=== PATIENT | female | born 1965 | race Caucasian/White ===

== ENCOUNTER 2020-09-18 02:11 | Emergency (ER) | payer OTHER ==
[~2020-09-18] VITALS: Ht 160 cm; Wt 105.0 kg
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
--- NOTE | 2020-09-18 02:52 | NUR ---
REPORT TO MARYANA WILSON.
--- NOTE | 2020-09-18 03:00 | NUR ---
RECEIVED REPORT FROM AMBER. QUINTANILLA TO CT. Addendum: 09/18/20 at 0312 by KHANG RECEIVED REPORT FROM AMBER. QUINTANILLA TO US.
--- NOTE | 2020-09-18 03:12 | NUR ---
LAB CAME TO DRAW PT, WILL CALL LAB WHEN PT RETURNS.
--- NOTE | 2020-09-18 03:21 | NUR ---
PT BACK FROM US, HOOKED BACK UP TO MONITORS. LAB IS PRESENT. VSS, NADN. CALL LIGHT W/IN REACH.
[2020-09-18 03:28] LABS: BASOPHILS % (AUTO) 1 % (0-1); EOSINOPHILS % (AUTO) 2 % (1-7); LYMPHOCYTES % (AUTO) 28 % (22-44); MEAN CORPUSCULAR HEMOGLOBIN 31.4 pg (27.0-34.8); MEAN CORPUSCULAR HGB CONC 33.5 g/dL (32.4-35.8); MEAN PLATELET VOLUME 8.1 fL (7.4-10.4); MONOCYTES % (AUTO) 8 % (2-9); NEUTROPHILS % (AUTO) 61 % (42-75); PLATELET COUNT 269 x10^3/uL (130-400); RED BLOOD COUNT 4.22 x10^6/uL (3.82-5.3); RED CELL DISTRIBUTION WIDTH 13.7 % (9.6-15.2)
[2020-09-18 03:39] LABS: ALBUMIN 3.7 g/dL (3.4-5.0); ANION GAP 5 mmol/L (5-15); CALCIUM 8.4 mg/dL (8.5-10.1); CHLORIDE 109 mmol/L (98-107); CREATININE 0.74 mg/dL (0.55-1.02)
--- NOTE | 2020-09-18 04:29 | NUR ---
PT UP TO BATHROOM AND BACK, NO INCIDENT. VSS, NADN. CALL LIGHT W/IN REACH.
[2020-09-18 05:22] VITALS: BP 140/65
== END 2020-09-18 06:12 | disposition home or self-care (01) ==
LOC: ED 06:00
DX: N95.0 Postmenopausal bleeding (principal); N93.8 Other specified abnormal uterine and vaginal bleeding; R10.84 Generalized abdominal pain
CPT/HCPCS: 36415; 76830; 80048; 82040; 85025; 86850; 86900; 99285